=== PATIENT | male | born 1940 | race Caucasian/White ===

== ENCOUNTER → 2017-04-28 | Outpatient (CLI) | payer OTHER ==
[~2017-04-28] VITALS: Ht 180.3 cm; Wt 95.3 kg
[~2017-04-28] MED LIST: ADVAIR HFA115 MCG/21 INH; CRESTOR10 MG PO; EFFEXOR 5050 MG/1 T1 PO; HYDROCHLOROTHIA25 M2 PO; INCRUSE ELLI62.5 MCG IH; MUCINEX TA600 MG/TA2 PO; MYSOLINE250 M1 PO; PRILOSEC OTC20 MG PO; SINGULAIR 10 MG10 M1 PO; TYLENOL325 MG PO; UNICOMPLEX M TA1 TA1 PO; ZYRTEC10 M5 PO
--- NOTE | ~2017-04-28 | CATHLAB ---
[facility] [address] [place] [address] INVASIVE PROCEDURE REPORT Name: ELIZABETH HITCHCOCK Room #: REG [facility]#: [id number] Admission: 04/28/17 Attend Phys: Domingo Fisher, Discharge: Date of : 44 Date of Service: 04/28/17 1736 Report #: [id number] THIS REPORT FOR: //name// APPROVED REPORT Patient Details Patient Status: Out-Patient Room #: The patient is a 76 year-old male Event Personnel Domingo Fisher Associate Loan Officer, Veena Preston Monitor, Odessa De Leon Monitor, Magali Leyva RN RN, Prashanth Galicia RN, Jerson Rodriguez Scrub Procedures Performed Art Access - R femoral artery* 05325 Initial Mod Sed Same Phys/QHP Gr5y [id number] 43867 Mod Sed Same Phys/QHP Ea [id number] Left Heart Cath w/or w/o Coronaries [id number] [facility] Hemostasis w/ Mynx Procedure Narrative The patient was brought electively to the Cardiac Catheterization Laboratory and was prepped and draped in a sterile manner. The Right Groin^ was infiltrated with 1% Lidocaine subcutaneous anesthesia. A PINNACLE 6FR Sheath #[id number] sheath was inserted into the RFA^. Coronary angiography was performed using coronary diagnostic catheters. The right coronary system was accessed and visualized with a JR 4 catheter. The left coronary system was accessed and visualized with a JL 4 catheter. The left ventricle was accessed and visualized with a Pigtail catheter. Left ventricular/Aortic Valve gradient assessed via catheter pullback. Left ventriculogram was performed in [place] projection. Pre-demployment femoral angiogram was performed . Closure device was deployed with a 6 Fr Mynx. The patient tolerated the procedure well and there were no complications associated with the procedure. There was no hematoma. Intraoperative Conscious Sedation Sedation start time: 09:23 Case end Time: 09:50 Fentanyl 25.0 mcg Versed 1.0 mg Fluoro Time: 2.43 minutes Dose: DAP 5801.60 cGycm2 647 mGy Contrast Type and Amount: Visipaque 135 ml Coronary Angiography [address] [address] INVASIVE PROCEDURE REPORT Name: ELIZABETH HITCHCOCK Room #: REG [facility]#: [id number] Admission: 04/28/17 Attend Phys: Domingo Fisher, Discharge: Date of : 44 Date of Service: 04/28/17 1736 Report #: [id number] The patient's coronary anatomy is co- dominant. Diagnostic Cath Left Main 50% distal left main stenosis LAD Subtotally occluded after large septal line fixer. Diagonal 1 50-60% ostial stenosis Circumflex Ostial circumflex with 50% stensosis OM1 Large OM, free of disease OM2 Distally arising second OM, small Right Coronary Co-dominant Mild 20-30% mid vessel plaquing Left Ventriculography The left ventricle is normal in size with normal contractility. The left ventricular ejection fraction is estimated to be 55-60%. There is no mitral insufficiency. Hemodynamics The aortic pressure is 161/86 mmHg with a mean of 127 mmHg. The left ventricular pressure is 181/3 mmHg with a mean of mmHg. The left ventricular end diastolic pressure is 32 mmHg. Conclusion 1. Normal global and regional systolic function (EF 65%) 2. 50% distal LM stenosis 3. Subtotally occluded proximal LAD, moderate ostial D1 stenosis 4. Ostial circumflex stenosis 50% 5. RCA plaquing (co-dominant) Recommendations CABG <ELECTRONICALLY SIGNED> By: Domingo Fisher MD, FACC 04/28/17 1736 [id number] Domingo Fisher MD, FACC /INF
[2017-04-28 07:50] VITALS: BP 145/85
[2017-04-28 08:00] LABS: MCH 32.5 pg (26.0-34.0); MCHC 34.9 g/dL (28.0-37.0); MCV 93.4 fL (80.0-100.0); RBC 4.6 mil/uL (4.50-6.00); RDW 13.4 % (10.5-14.5); WBC 6.6 thou/uL (4.0-11.0)
[2017-04-28 08:09] LABS: CREATININE 1.5 mg/dL (0.7-1.3)
== END | disposition home or self-care (01) ==
LOC: CATH 04-21 08:54
PROVIDERS: Internal Medicine
DX: I25.10 Atherosclerotic heart disease of native coronary artery without angina pectoris (principal); J44.9 Chronic obstructive pulmonary disease, unspecified; E78.5 Hyperlipidemia, unspecified; K21.9 Gastro-esophageal reflux disease without esophagitis; Z87.891 Personal history of nicotine dependence; Z79.899 Other long term (current) drug therapy